=== PATIENT | female | born 1980 | race Caucasian/White ===

== ENCOUNTER 2018-08-28 08:26 | Emergency (ER) | payer OTHER | END 2018-08-28 10:44 | disposition home or self-care (01) | LOC: ED 08:26 ==

== ENCOUNTER 2019-07-16 21:32 | Emergency (ER) | payer OTHER ==
[~2019-07-16] VITALS: Ht 167.6 cm; Wt 63.5 kg
[2019-07-16 21:45] VITALS: Ht 167.6 cm; Wt 63.5 kg
[2019-07-17 00:38] VITALS: BP 129/78
== END 2019-07-17 00:38 | disposition home or self-care (01) ==
LOC: ED 21:32
DX: G43.909 Migraine, unspecified, not intractable, without status migrainosus (principal); Z76.0 Encounter for issue of repeat prescription